=== PATIENT | male | born 1965 | race Two or more races ===

== ENCOUNTER 2024-10-09 13:14 | Emergency (ER) | payer BC ==
[~2024-10-09] VITALS: Ht 185.4 cm; Wt 86.0 kg
[2024-10-09 13:26] VITALS: O2SAT 99
[2024-10-09 14:01] VITALS: BP 153/98; PULSE 86; RESP 14; TEMP 36.7; O2SAT 99
== END 2024-10-09 14:32 | disposition left against medical advice (07) ==
LOC: ER 13:14
DX: R10.9 Unspecified abdominal pain (principal); R11.2 Nausea with vomiting, unspecified; Z53.21 Procedure and treatment not carried out due to patient leaving prior to being seen by health care provider